=== PATIENT | male | born 1945 | race Hispanic/Latino ===

== ENCOUNTER 2016-12-21 09:05 | Outpatient (CLI) | payer MEDICARE ==
--- NOTE | 2016-12-21 10:03 | XRay Report ---
Renal ultrasound: The patient has an aorto biiliac endograft. Gallbladder clips are noted. There is mild gaseous distention of several loops of small bowel in the mid and left portions of the abdomen. There is an unremarkable bowel gas pattern in the colon. There is no free air noted. No soft tissue masses. Impressions: Nonspecific gaseous distention of small bowel. Aorto biiliac endograft.
--- NOTE | 2016-12-21 11:21 | Ultrasound Report ---
ULTRASOUND RENAL BILATERAL HISTORY: Renal cyst. TECHNIQUE: transabdominal ultrasound with color Doppler interrogation. FINDINGS: The right kidney measures 10.8 x 4.7 x 4.5cm. Right renal cortex: 1.5cm. The left kidney measures 12.1 x 4.3 x 5.4cm. Left renal cortex: 1.3cm. Both kidneys are normal size and position. There is increased cortical echotexture bilaterally consistent with nonspecific renal parenchymal disease. There are 2 cysts in the mid right kidney measuring 2.7 x 2.9 cm and 1.5 x 1.6 cm. The larger cyst appears to contain layering debris. These appear unchanged since the CT abdomen pelvis performed 05/24/16. No left renal lesion is demonstrated. No evidence for nephrolithiasis, mass, hydronephrosis or perinephric fluid. The bladder is partially empty but unremarkable. IMPRESSION: Renal parenchymal disease. Right renal cysts. No obstructive uropathy.
== END 2016-12-21 09:06 | disposition home or self-care (01) ==
LOC: US 09:05
PROVIDERS: ATTEND Urology
DX: Q61.02 Congenital multiple renal cysts (principal); I11.0 Hypertensive heart disease with heart failure; I50.9 Heart failure, unspecified; E78.00 Pure hypercholesterolemia, unspecified; J45.909 Unspecified asthma, uncomplicated; Z87.891 Personal history of nicotine dependence; Z95.828 Presence of other vascular implants and grafts
CPT/HCPCS: 74000; 76770